=== PATIENT | male | born 1980 | race Caucasian/White ===

== ENCOUNTER 2017-01-17 14:42 | Inpatient (IN) | payer OTHER ==
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
[2017-01-17] MEDS: TORADOL 30 MG VIAL IVP SCH ×2 (18:31→22:38)
[2017-01-17] MEDS: SOLU-Medrol 40 MG VIAL IVP SCH ×2 (18:31→22:42)
[2017-01-17] MEDS: NS 1000 ML 1,000 ML IV SCH (18:32)
[2017-01-17] MEDS: NICODERM PATCH 21 MG/24 HR TD SCH (18:33)
[2017-01-17 18:37] LABS: BASOPHILS # (AUTO) 0.1 X10^3/uL (0.0-0.1); BASOPHILS % (AUTO) 0.6 % (0.2-1.0); EOSINOPHILS # (AUTO) 0.4 x10^3/uL (0.0-0.2); EOSINOPHILS % (AUTO) 3.3 % (0.9-2.9); HEMATOCRIT 42.3 % (42.0-54.0); HEMOGLOBIN 14.6 g/dL (13.5-18.0); LYMPHOCYTES # (AUTO) 3.3 X10^3/uL (1.3-2.9); LYMPHOCYTES % (AUTO) 28.2 % (21.0-51.0); MEAN CORPUSCULAR HEMOGLOBIN 29.6 pg (27.0-34.0); MEAN CORPUSCULAR HGB CONC 34.4 g/dL (33.0-35.0); MEAN CORPUSCULAR VOLUME 86.1 fL (80.0-100.0); MEAN PLATELET VOLUME 7.2 fL (7.4-11.0); MONOCYTES # (AUTO) 0.7 x10^3/uL (0.3-0.8); MONOCYTES % (AUTO) 6.3 % (0.0-13.0); NEUTROPHILS # (AUTO) 7.3 x10^3/uL (2.2-4.8); NEUTROPHILS % (AUTO) 61.6 % (42.0-75.0); PLATELET COUNT 320 X10^3/uL (150.0-450.0); RED BLOOD COUNT 4.92 X10^6/uL (4.7-6.0); WHITE BLOOD COUNT 11.8 X10^3/uL (3.6-10.0)
[2017-01-17 18:48] LABS: ALANINE AMINOTRANSFERASE 56 Units/L (12-78); ALBUMIN 4.3 g/dL (3.4-5.0); ALKALINE PHOSPHATASE 64 Units/L (46-116); ASPARTATE AMINO TRANSFERASE 23 Units/L (15-37); BLOOD UREA NITROGEN 14 mg/dL (7-18); CALCIUM 8.7 mg/dL (8.5-10.1); CARBON DIOXIDE 26.3 mmol/L (21-32); CHLORIDE 105 mmol/L (98-107); GLUCOSE 110 mg/dL (65-99); SODIUM 142 mmol/L (136-145); TOTAL PROTEIN 8.1 g/dL (6.4-8.2); eGFR BLACK RACES > 60 (>60); eGFR NON BLACK RACES > 60 (>60)
[2017-01-17 19:45] VITALS: BMI 35.2
[2017-01-17] MEDS: NORCO 7.5/325 MG TAB PO PRN (19:49)
[2017-01-17] MEDS ORDERED: BENADRYL INJ 50 MG VIAL IVP ONE (21:07)
[2017-01-17] MEDS ORDERED: ATIVAN INJ 2 MG VIAL IVP ONE (21:07)
[2017-01-17] MEDS ORDERED: RESTORIL CAP 30 MG PO PRN (23:47)
[2017-01-17] MEDS ORDERED: DILAUDID INJ IVP ONE (23:58)
[2017-01-18] MEDS: NORCO 7.5/325 MG TAB PO PRN ×3 (02:57→13:38)
[2017-01-18] MEDS: TORADOL 30 MG VIAL IVP SCH (04:23)
[2017-01-18] MEDS: SOLU-Medrol 40 MG VIAL IVP SCH (06:22)
[2017-01-18] MEDS: NICODERM PATCH 21 MG/24 HR TD SCH (08:27)
[2017-01-18] MEDS: DILAUDID INJ IVP PRN ×2 (11:12→16:52)
--- NOTE | 2017-01-18 13:08 | PCM.PROG ---
Progress Note - Progress Note for Day of Date: 01/18/17 - Subjective Subjective: intractable lower back pain. 36 WM ADMITTED ONE DAY AGO WITH LUMBAR SPINE PAIN, PT HAS HX OF LUMBAR SPINE FUSION PER DR ENG IN [place]. PLAN TO OBTAIN MRI THIS AM, CONTINUE PAIN CONTROL, MUSCLE RELAXERS - Past Medical Family Social History Past Med/Fam/Surg Hx: No changes since H&P Allergies: Allergies Cephalosporins Allergy (Intermediate, Verified 01/17/17 15:23) - Vital Signs and I&O's Vital Signs: Temperature 98.5 F Pulse Rate [Right Brachial] 71 Respiratory Rate 20 Blood Pressure [Right Arm] 163/88 O2 Sat by Pulse Oximetry 96 Intake and Output: Intake & Output 01/16/17 01/17/17 01/18/17 01/19/17 11:59 11:59 11:59 11:59 Intake Total 2044 Balance 2044 - Physical Exam Oriented: Normal Eyes: Normal Ear: Normal Nose: Normal Throat: Normal Cardiovascular: Normal : Normal Auscultation: Bowel Sounds: Normal Tenderness: Normal Skin: Normal Musculoskeletal: Back:Lumbar, Tender Psychiatric: Normal Mood Description: Calm, Appropriate Affect: Normal Speech Pattern: Clear, Appropriate - Laboratory and Diagnostics Result Diagrams: 01/17/17 18:15 01/17/17 18:15 Labs: Laboratory WBC 11.8 X10^3/uL (3.6-10.0) H 01/17/17 18:15 RBC 4.92 X10^6/uL (4.7-6.0) 01/17/17 18:15 Hgb 14.6 g/dL (13.5-18.0) 01/17/17 18:15 Hct 42.3 % (42.0-54.0) 01/17/17 18:15 MCV 86.1 fL (80.0-100.0) 01/17/17 18:15 MCH 29.6 pg (27.0-34.0) 01/17/17 18:15 MCHC 34.4 g/dL (33.0-35.0) 01/17/17 18:15 RDW 13.0 % (11.6-16.5) 01/17/17 18:15 Plt Count 320 X10^3/uL (150.0-450.0) 01/17/17 18:15 MPV 7.2 fL (7.4-11.0) L 01/17/17 18:15 Neut % 61.6 % (42.0-75.0) 01/17/17 18:15 Lymph % 28.2 % (21.0-51.0) 01/17/17 18:15 [place] % 6.3 % (0.0-13.0) 01/17/17 18:15 Eos % 3.3 % (0.9-2.9) H 01/17/17 18:15 Baso % 0.6 % (0.2-1.0) 01/17/17 18:15 Neut # 7.3 x10^3/uL (2.2-4.8) H 01/17/17 18:15 Lymph # 3.3 X10^3/uL (1.3-2.9) H 01/17/17 18:15 [place] # 0.7 x10^3/uL (0.3-0.8) 01/17/17 18:15 Eos # 0.4 x10^3/uL (0.0-0.2) H 01/17/17 18:15 Baso # 0.1 X10^3/uL (0.0-0.1) 01/17/17 18:15 Absolute Nucleated RBC 0.0 /100WBC 01/17/17 18:15 Sodium 142 mmol/L (136-145) 01/17/17 18:15 Corrected Sodium TNP 01/17/17 18:15 Potassium 4.2 mmol/L (3.5-5.1) 01/17/17 18:15 Chloride 105 mmol/L (98-107) 01/17/17 18:15 Carbon Dioxide 26.3 mmol/L (21-32) 01/17/17 18:15 BUN 14 mg/dL (7-18) 01/17/17 18:15 Creatinine 1.10 mg/dL (0.70-1.30) 01/17/17 18:15 Est GFR (MDRD) Af Amer > 60 (>60) 01/17/17 18:15 Est GFR (MDRD) Non-Af > 60 (>60) 01/17/17 18:15 Glucose 110 mg/dL (65-99) H 01/17/17 18:15 Calcium 8.7 mg/dL (8.5-10.1) 01/17/17 18:15 Corrected Calcium TNP 01/17/17 18:15 Total Bilirubin 0.30 mg/dL (0.2-1.0) 01/17/17 18:15 AST 23 Units/L (15-37) 01/17/17 18:15 ALT 56 Units/L (12-78) 01/17/17 18:15 Alkaline Phosphatase 64 Units/L (46-116) 01/17/17 18:15 Total Protein 8.1 g/dL (6.4-8.2) 01/17/17 18:15 Albumin 4.3 g/dL (3.4-5.0) 01/17/17 18:15 Globulin 3.8 g/dL (2.5-4.5) 01/17/17 18:15 Albumin/Globulin Ratio 1.1 Ratio (1.1-2.1) 01/17/17 18:15 - Plan (1) Acute exacerbation of chronic low back pain Status: Acute Plan: 1. solumedrol 80mg IVP Q8H X 3 doses. 2. toradol 30mg IVP Q6H X 3 doses. 3. MRI L/S; r/o cord involvement. 4. [place] 7.5 Q6H PRN pain (2) Intractable neuropathic pain of right lower extremity Status: Acute Plan: SEE ABOVE (3) Depression Status: Chronic Qualifiers: Depression Type: D Major depression recurrence: M Active/Remission status : A Major depression episode severity: M Psychotic features: P Trimester: T
[2017-01-18 14:03] VITALS: BP 144/89
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
[2017-01-18] MEDS ORDERED: ZESTRIL TAB 10 MG ONE (16:49)
[2017-01-18] MEDS ORDERED: SOMA TAB 350 MG PO SCH (16:51)
[2017-01-18] MEDS ORDERED: MOTRIN TAB 800 MG PO SCH (17:00)
[2017-01-18] MEDS ORDERED: ZESTRIL TAB 10 MG PO SCH (17:00)
[2017-01-18] MEDS ORDERED: MOTRIN TAB 800 MG PO ONE (17:18)
[2017-01-18] MEDS ORDERED: SOMA TAB 350 MG PO ONE (17:18)
[2017-01-18] MEDS: NS 1000 ML 1,000 ML IV SCH (17:26)
== END 2017-01-18 17:30 | disposition home or self-care (01) | DRG 552 ==
LOC: MED/SURG 14:42
PROVIDERS: ADMIT Internal Medicine; ATTEND Internal Medicine
DX: M54.5 Low back pain (principal); V89.2XXA Person injured in unspecified motor-vehicle accident, traffic, initial encounter; I10 Essential (primary) hypertension; Z98.890 Other specified postprocedural states; Y92.9 Unspecified place or not applicable; G57.81 Other specified mononeuropathies of right lower limb; F32.89 Other specified depressive episodes; R26.89 Other abnormalities of gait and mobility
CPT/HCPCS: 36415; 72148; 80053; 85025; 94760; A4216; A4222; J1170; J1200; J1885; J2060; J2920